=== PATIENT | female | born 1960 | race African-American/Black ===

== ENCOUNTER 2017-07-27 11:33 | Outpatient (CLI) | payer OTHER ==
[2017-07-27 11:54] LABS: Hemoglobin 12.1 g/dL (12.0-16.0); Mean Corpuscular HGB CONC 32.6 g/dL (32.0-36.0); Mean Corpuscular Hemoglobin 29.3 pg (27.0-31.0); Mean Corpuscular Volume 89.6 fl (81.0-99.0); Mean Platelet Volume 7.3 fL (7.4-10.4); Platelet Count 232 thou/uL (130-400); RBC Distribution Width 12.4 % (11.5-14.5); Red Blood Cell (RBC) Count 4.14 mill/uL (4.20-5.40); White Blood Cell (WBC) Count 6.4 thou/uL (4.8-10.8)
--- NOTE | 2017-07-27 12:20 | EKG ---
Test Reason : Blood Pressure : / mmHG Vent. Rate : 072 BPM Atrial Rate : 072 BPM P-R Int : 136 ms QRS Dur : 084 ms QT Int : 370 ms P-R-T Axes : 056 022 016 degrees QTc Int : 405 ms Normal sinus rhythm Normal ECG No previous ECGs available Confirmed by RUBY MCBRIDE ([id number]) on 07/27/2017 12:19:44 PM Referred By: ANDREINA Confirmed By:RUBY MCBRIDE
[2017-07-27 12:27] LABS: Anion Gap 13 mmol/L (10-20); BUN (Urea Nitrogen) 18 mg/dL (9.8-20.1); Calc. Creatinine Clearance 0 mL/min (70-130); Calcium 9.6 mg/dL (7.8-10.44); Carbon Dioxide 28 mmol/L (22-29); Chloride 102 mmol/L (98-107); Estimated GFR-MDRD 79; Glucose 80 mg/dL (70-105); Potassium 3.6 mmol/L (3.5-5.1); Sodium 139 mmol/L (136-145)
== END 2017-07-27 11:34 | disposition home or self-care (01) ==
LOC: LABBT 11:33
PROVIDERS: ATTEND Orthopaedic Surgery
DX: Z01.818 Encounter for other preprocedural examination (principal); G56.01 Carpal tunnel syndrome, right upper limb; G56.02 Carpal tunnel syndrome, left upper limb
CPT/HCPCS: 80048; 85027; 93005; 93010

== ENCOUNTER → 2017-07-28 | Day surgery (SDC) | payer OTHER ==
[2017-07-27 11:48] VITALS: BMI 40.3
[~2017-07-28] MED LIST: Bupivacaine HCl 0.5%/Epinephrine 1:200,000/PF 30 ml Vial ONE; CEFAZOLIN/Water 2 GM/20 ML SYRINGE ONE; Dexamethasone 20 MG/5 ML VIAL ONE; Fentanyl 100 MCG/2 ML VIAL ONE; Ketorolac Tromethamine 30 MG/ML VIAL ONE; Lidocaine 1% PF 5 ML VIAL ONE; Midazolam HCl 2 mg/2 ml Vial ONE; Neomycin-Polymyxin 1 ML AMP ONE; Ondansetron HCl/PF 4 MG/2 ML Vial ONE; PHENYLEPHRINE-NS 100 MCG/ML 10 ML SYRINGE ONE; PROPOFOL 200 MG/20 ML VIAL ONE
--- NOTE | 2017-07-28 22:20 | OP ---
DATE OF OPERATION: 07/28/2017. PREOPERATIVE DIAGNOSIS: Bilateral carpal tunnel syndrome. POSTOPERATIVE DIAGNOSIS: Bilateral carpal tunnel syndrome. PROCEDURE PERFORMED: Bilateral carpal tunnel releases. SURGEON: Roly Ingram M.D. ANESTHESIA: General. TECHNIQUE: The patient was given preoperative IV antibiotics, taken to the operating room and placed in supine position. Satisfactory general anesthesia was performed. Both hands and forearms were st erilely prepped and draped in the usual fashion. The tourniquets were placed in the proximal forearm region. The left hand was addressed initially. Left hand, wrist and distal forearm was exsanguinat ed and tourniquet at the left forearm was raised 200 mmHg. A slight curvilinear incision was made ap proximately 12 mm in length. Blunt and sharp dissection was made down to the median nerve using the [employer] carpal tunnel release instruments. The interval between the median nerve and the solorio sverse carpal ligament was developed and then between the transverse carpal ligament and the palmar f ascia. The [place] tome scalpel was then used to cut the transverse carpal ligament, making sure yoni t there was no constrictive tissue over the median nerve into the forearm or into the palm of the godoy d and this was easily visualized through the incision. The wound was then irrigated with antibiotic solution and closed with 3-0 Rapide and then 10 mL of 0.5% Marcaine with epinephrine was used to ____ _ analgesia around the incision. Sterile dressing was applied. Tourniquet was released. The exact same procedure was then performed on the right hand. After the wound was closed, a 10 mL of 0.5% Mar duy with epinephrine was used in the right hand around the incision as well. A sterile dressing wa s applied. The tourniquet was released. The patient was then awakened, extubated, and transferred t o recovery room in stable condition. ESTIMATED BLOOD LOSS: None. COMPLICATIONS: None. TOURNIQUET TIME: On the left for 7 minutes. On the right was 6 minutes. DISCHARGE MEDICATIONS: Douglas 10 one every 6 hours as needed for pain, #50.
== END ==
LOC: SDC 09:41
PROVIDERS: ATTEND Orthopaedic Surgery
PROC: 01N50ZZ Release Median Nerve, Open Approach (ICD-10-PCS; principal; 2017-07-28)
DX: G56.03 Carpal tunnel syndrome, bilateral upper limbs (principal); I10 Essential (primary) hypertension; M19.90 Unspecified osteoarthritis, unspecified site; Z79.899 Other long term (current) drug therapy
CPT/HCPCS: 80048; 85027; 93005; 93010; J0670; J1100; J1885; J2001; J2250; J2405; J2704; J3010

== ENCOUNTER 2017-11-23 13:08 | Outpatient (CLI) | payer OTHER ==
--- NOTE | 2017-11-23 15:20 | MRI ---
RIGHT SHOULDER MRI WITHOUT IV CONTRAST: History: Right shoulder pain. Technique: Multiplanar, multisequence MRI examination of the right shoulder is performed. FINDINGS: There is evidence for persist os acromiale without significant associated abnormal marrow signal. The re is a prominent longitudinal split type tear of the biceps tendon in the level of the upper bicipit al grove and extending intraarticularly. There is some associated biceps tendon subluxation, evidence for biceps tendon gissel complex disruption. Considerable thinning of the subscapularis tendon with on the surface a minimally delaminating tear. Small undersurface, possibly concealed tear of the supr aspinatus and conjoined tendon region. No complete full thickness tear of the supraspinatus or infras pinatus tendons. Rotator cuff muscles are within normal limits for signal and volume. IMPRESSION: Interstitial longitudinal and split type tear of the biceps tendon with associated subluxation and di sruption of biceps tendon gissel complex. Undersurface attenuating tear of the subscapularis tendon. Prominent full thickness os acromiale defect. POS: [facility]
== END 2017-11-23 13:09 | disposition home or self-care (01) ==
LOC: TBSIIMAG 13:08
PROVIDERS: ATTEND Orthopaedic Surgery
DX: M25.511 Pain in right shoulder (principal); S46.211A Strain of muscle, fascia and tendon of other parts of biceps, right arm, initial encounter